=== PATIENT | male | born 1985 | race Caucasian/White ===

== ENCOUNTER 2023-01-28 14:22 | Emergency (ER) | payer OTHER ==
[~2023-01-28] VITALS: Ht 188 cm; Wt 74.8 kg
[~2023-01-28 14:22] MED LIST: IBUP800 PO
[2023-01-28 14:34] VITALS: BP 120/81
[2023-01-28] MEDS ORDERED: DEPAKOTE ER500 M2 (14:38)
== END 2023-01-28 17:00 | disposition home or self-care (01) ==
LOC: ER 14:22
DX: S62.633A Displaced fracture of distal phalanx of left middle finger, initial encounter for closed fracture (principal); S63.283A Dislocation of proximal interphalangeal joint of left middle finger, initial encounter; X58.XXXA Exposure to other specified factors, initial encounter
CPT/HCPCS: 73140